=== PATIENT | female | born 1995 | race Hispanic/Latino ===

== ENCOUNTER 2019-07-02 15:23 | Outpatient (CLI) | payer OTHER ==
--- NOTE | 2019-07-02 16:12 | ULT ---
ULTRASOUND OBSTETRICAL COMPLETE: DATE: 07/02/2019 HISTORY: 23-year-old female in second trimester of . Evaluate size, anatomy, and dates. ICD-10: "O09.892, supervision of other high-risk , second trimester" FINDINGS: number: sheikh lie: Cephalic Maternal cervix: 5 cm. Closed. Placenta: Anterior. No placenta previa. Amniotic fluid volume: YELENA = 12cm heart rate: 135 bpm The following anatomy is visualized, with no evidence of anomalies: Head, cerebellum, lateral ventricles, four-chamber heart, stomach, kidneys, cord insertion, bladder, cervical spine, thoracic spine, lumbar spine, sacrum, nose and lips, upper extremities, lower extreme venous, and three-vessel cord. biometry: Biparietal diameter (BPD): 4.7 cm 20 w 2 d Head circumference (HC): 19.4 cm 21 w 5 d Abdominal circumference (AC): 15.8 cm 21 w 0 d Femur length (FL): 3.2 cm 20 w 0 d Average ultrasound age (AUA): 20 w 6 d Estimated date of delivery (NAKITA): 11/13/2019 Estimated weight (EFW): 360 g +/- 53 g IMPRESSION: 1) Live 2nd trimester intrauterine gestation. 2) Estimated gestational age of 20 weeks, 6 days 3) cephalic lie. 4) no anatomic abnormality identified.
== END 2019-07-02 15:24 | disposition home or self-care (01) ==
LOC: BICULT 15:23
PROVIDERS: ATTEND Family Medicine
DX: O09.892 Supervision of other high risk pregnancies, second trimester (principal); O32.9XX0 Maternal care for malpresentation of fetus, unspecified, not applicable or unspecified; Z3A.20 20 weeks gestation of pregnancy
CPT/HCPCS: 76805

== ENCOUNTER 2019-11-05 07:52 | Inpatient (IN) | payer OTHER, SELFPAY ==
[2019-11-05] MEDS: Lactated Ringer's 1,000 ML IV SCH ×2 (12:18→13:48)
[2019-11-05] MEDS ORDERED: hydrALAZINE 20 MG/ML VIAL SLOW IVP PRN ×2 (12:22→18:03)
[2019-11-05] MEDS ORDERED: Promethazine HCl 25 MG/ML VIAL IM PRN ×3 (12:22→18:03)
[2019-11-05] MEDS ORDERED: Ondansetron PF 4 MG/2 ML Vial IVP PRN ×3 (12:22→18:03)
[2019-11-05 12:39] LABS: Hemoglobin 12.7 g/dL (12.0-16.0); Mean Corpuscular HGB CONC 35.1 g/dL (32.0-36.0); Mean Platelet Volume 9.1 fL (7.4-10.4); Platelet Count 204 thou/uL (130-400); RBC Distribution Width 11.5 % (11.5-14.5); Red Blood Cell (RBC) Count 3.85 mill/uL (4.20-5.40); White Blood Cell (WBC) Count 5.9 thou/uL (4.8-10.8)
[2019-11-05] MEDS ORDERED: CEFAZOLIN 2 GM in Premix Bag 1 BAG IVPB SCH (12:45)
[2019-11-05] MEDS ORDERED: Bicitra 30 ML UDCUP PO SCH (12:45)
[2019-11-05 13:09] VITALS: BMI 34.5
[2019-11-05 13:20] LABS: HBSAg Index 0.23 S/CO (0-0.99); Hep B Surf Ag Non-Reactive S/CO (NonReactive); Syphilis Antibody Nonreactive (Nonreactive); Syphilis Antibody Index 0.04 S/CO (<1.00 Non-Reactive)
[2019-11-05] MEDS ORDERED: MORPHINE 5 MG/10 ML PF VIAL ONE (13:32)
[2019-11-05] MEDS ORDERED: PHENYLEPHRINE-NS 100 MCG/ML 10 ML SYRINGE ONE (13:33)
[2019-11-05] MEDS ORDERED: Oxytocin 10 UNITS/ML VIAL ONE (13:33)
[2019-11-05] MEDS ORDERED: Meperidine HCl/PF 25 MG/ML VIAL SLOW IVP PRN (15:41)
[2019-11-05] MEDS ORDERED: Ondansetron HCl/PF 4 MG/2 ML Vial IVP PRN (15:41)
[2019-11-05] MEDS ORDERED: Naloxone HCl 0.4 mg/ml Vial IVP PRN ×2 (15:41)
[2019-11-05] MEDS ORDERED: Ketorolac Tromethamine 30 MG/ML VIAL IVP PRN (15:41)
[2019-11-05] MEDS ORDERED: HYDROmorphone 2 MG/ML VIAL SLOW IVP PRN (15:41)
[2019-11-05] MEDS ORDERED: Promethazine HCl 25 MG SUPP PR PRN (15:41)
[2019-11-05] MEDS ORDERED: L&D-Morphine 4 MG/ML VIAL SLOW IVP PRN ×2 (15:41→17:14)
[2019-11-05] MEDS ORDERED: Naloxone HCl 0.4 mg/ml Vial IV PRN (15:41)
[2019-11-05] MEDS ORDERED: diphenhydrAMINE 50 MG/ML VIAL IVP PRN (15:41)
[2019-11-05] MEDS ORDERED: NS / Oxytocin 40 units/1000ml 1,000 ML ONE (15:42)
[2019-11-05] MEDS ORDERED: Communication Order-Pharmacy FS SCH (15:45)
[2019-11-05] MEDS ORDERED: Ketorolac Tromethamine 30 MG/ML VIAL IVP SCH (15:45)
[2019-11-05] MEDS ORDERED: Morphine 4 MG/ML VIAL ONE (17:10)
[2019-11-05] MEDS ORDERED: Morphine 4 MG/ML VIAL SLOW IVP SCH (17:30)
--- NOTE | 2019-11-05 17:47 | PDOC.OPDEL ---
OB Operative/Delivery Note Delivery Dr/Surgeon: Himanshu Talley Pre-Delivery Diagnosis: scheduled section Weeks gestation: 39 Anesthesia: spinal - Additional Findings/Plan Placenta delivered: spontaneous Compilations/Other Findings: Procedure Note Date of Procedure: 11/05/19 Attending Surgeon: Dr. Mayank MD Resident Surgeon: Yamilet Downs MD, PGY2 Procedure: Repeat low transverse caesarean section Preoperative Diagnosis: 1)Term intrauterine 2)Previous Postoperative Diagnosis: 1)same as above Anesthesia: spinal Indications: The patient is a 24 year old female at 39.0 weeks gestation who presents for a repeat scheduled . Procedure in Detail: After risks, benefits, and alternatives were explained to the patient, she gave informed consent. Pre-operative antibiotics included Cefazolin 2 gram IV. The patient was taken to the operating room and spinal anesthesia was initiated. She was placed in the supine position with a left tilt and prepped and draped in usual sterile fashion. A Pfannenstiel incision was made with a scalpel and carried down to the level of the fascia which was sharply knicked. The fascial cut was extended bilaterally with Golden scissors. The inferior and superior edges of the cut fascial edges were elevated with Alix clamps and the underlying rectus muscles were sharply and bluntly dissected free. The recti were divided digitally and retracted manually. The peritoneum was entered bluntly and retracted manually. Bladder blade was placed. A low transverse score was made with the scalpel and the uterus was entered in the midline with the scalpel. Clear fluid was seen. The hysterotomy was extended manually. The infant was noted to be vertex and was easily delivered by fundal pressure. Mouth and nares were bulb suctioned. Cord clamped and cut and grossly normal female was handed to waiting nurse. Cord blood was obtained. Placenta was manually extracted, found to be intact with 3 vessel cord and discarded. The uterus was externalized and the endometrium was curetted with a dry lap. The bladder blade was replaced and the uterus was closed with a running locking #1 Chromic suture followed by a running non- locking #1 Chromic imbricating suture. Following this hemostasis was noted. The abdomen was irrigated with saline and suctioned free of clots. The uterus was internalized and the hysterotomy was again noted to be hemostatic. Seprafilm was applied. The fascia was closed with a running non-locking 0-PDS suture. The subcutaneous tissue was irrigated and there were no bleeders and then approximated with chromic suture. The skin was approximated with robles and a pressure dressing was placed. All counts were correct. The patient tolerated the procedure well and was taken to the recovery room in stable condition. Estimated Blood Loss: 240cc Complications: None Findings: Grossly normal female . Grossly normal placenta with 3 vessel cord discarded. Drains: Shearer to gravity draining clear urine Post delivery plan: routine recovery
[2019-11-05] MEDS ORDERED: Meperidine HCl/PF 25 MG/ML VIAL IM PRN (18:03)
[2019-11-05] MEDS ORDERED: Bisacodyl 10 MG SUPP PR PRN (18:03)
[2019-11-05] MEDS ORDERED: NS / Oxytocin 40 units/1000ml 1,000 ML IV SCH (18:03)
[2019-11-05] MEDS ORDERED: HYDROcodone/Acetaminophen 5/325 mg Tablet PO PRN (18:03)
[2019-11-05] MEDS ORDERED: Lanolin Ointment 7 GM TUBE TOP PRN (18:03)
[2019-11-05] MEDS ORDERED: diphenhydrAMINE 25 MG CAP PO PRN (18:03)
[2019-11-05] MEDS: Docusate Calcium (SURFAK) 240 MG CAP PO SCH (22:29)
[2019-11-05] MEDS: Ferrous Sulfate 325 MG TAB PO SCH (22:29)
[2019-11-06] MEDS: Ketorolac Tromethamine 30 MG/ML VIAL IVP SCH ×3 (03:17→13:28)
[2019-11-06 07:15] LABS: Hemoglobin 10.7 g/dL (12.0-16.0); Mean Corpuscular HGB CONC 34.8 g/dL (32.0-36.0); Mean Corpuscular Hemoglobin 33.4 pg (27.0-31.0); Mean Corpuscular Volume 96.2 fL (78.0-98.0); Platelet Count 152 thou/uL (130-400); RBC Distribution Width 11.5 % (11.5-14.5); Red Blood Cell (RBC) Count 3.19 mill/uL (4.20-5.40); White Blood Cell (WBC) Count 7.5 thou/uL (4.8-10.8)
[2019-11-06] MEDS ORDERED: Adacel (T-DAP) 0.5 ML SYRINGE IM ONE (09:00)
[2019-11-06] MEDS: HYDROcodone/Acetaminophen 5/325 mg Tablet PO PRN ×3 (09:58→20:57)
[2019-11-06] MEDS: Prenatal Vitamin 1 TAB PO SCH (09:59)
[2019-11-06] MEDS: Docusate Calcium (SURFAK) 240 MG CAP PO SCH ×2 (09:59→20:59)
[2019-11-06] MEDS: Ferrous Sulfate 325 MG TAB PO SCH ×2 (10:02→21:00)
[2019-11-06] MEDS: Ibuprofen 800 MG TAB PO SCH ×2 (13:31→21:03)
[2019-11-06] MEDS: Simethicone Chewable 80 MG TAB PO PRN (20:59)
[2019-11-07] MEDS: HYDROcodone/Acetaminophen 5/325 mg Tablet PO PRN (05:45)
[2019-11-07] MEDS: Ibuprofen 800 MG TAB PO SCH ×3 (05:45→21:39)
[2019-11-07] MEDS: Simethicone Chewable 80 MG TAB PO PRN (05:45)
[2019-11-07] MEDS: Prenatal Vitamin 1 TAB PO SCH (09:44)
[2019-11-07] MEDS: Docusate Calcium (SURFAK) 240 MG CAP PO SCH ×2 (09:44→21:39)
[2019-11-07] MEDS: Ferrous Sulfate 325 MG TAB PO SCH ×2 (09:52→21:39)
[2019-11-07 20:59] VITALS: TEMP 98.5
[2019-11-08] MEDS: Simethicone Chewable 80 MG TAB PO PRN (05:43)
[2019-11-08] MEDS: Ibuprofen 800 MG TAB PO SCH (05:44)
[2019-11-08 07:38] VITALS: BP 106/68
[2019-11-08] MEDS: Ferrous Sulfate 325 MG TAB PO SCH (09:50)
[2019-11-08] MEDS: Docusate Calcium (SURFAK) 240 MG CAP PO SCH (09:58)
[2019-11-08] MEDS: Prenatal Vitamin 1 TAB PO SCH (09:58)
== END 2019-11-08 11:32 | disposition home or self-care (01) | DRG 788 ==
LOC: EDSTATUS 07:53 → L&D 11:39 → UNDOADMIN 11:39 → L&D 12:02 → 3SW 18:02
PROVIDERS: ADMIT Family Medicine; ATTEND Family Medicine
PROC: 10D00Z1 Extraction of Products of Conception, Low, Open Approach (ICD-10-PCS; principal; 2019-11-05)
DX: O34.211 Maternal care for low transverse scar from previous cesarean delivery (principal); Z3A.39 39 weeks gestation of pregnancy; Z37.0 Single live birth
CPT/HCPCS: 36415; 85027; 86780; 86850; 86900; 86901; 87340; J0690; J1885; J2270; J2274; J2405; J2590

== ENCOUNTER 2020-10-17 16:47 | Emergency (ER) | payer MEDICAID, OTHER, SELFPAY ==
[~2020-10-17 16:47] MED LIST: Iopamidol-370 76% 500 ML 1 ML ONE
[2020-10-17] MEDS ORDERED: Ketorolac Tromethamine 30 MG/ML VIAL ONE (17:15)
[2020-10-17 17:53] LABS: BHCG - Serum Negative (NEGATIVE); Pregs Control Background? CLEAR/WHITE (CLR/WHITE); Pregs Control Bar Appear? YES (CONTROL BAR)
[2020-10-17 17:57] LABS: Bilirubin Negative (Negative); Blood, Urine 1+ (Negative); Clarity Extra Turbid (Clear); Glucose, Urine (Dipstick) Normal (Negative); Ketone, Urine 40 mg/dL (Negative); Leukocyte 500 Leu/uL (Negative); Nitrite Negative (Negative); Protein, Urine (Dipstick) 70 mg/dL (Neg-Trace); Specific Gravity, Urine 1.016 (1.002-1.036); Urobilinogen 3 mg/dL (Less than 2); WBC/HPF Greater than 50 HPF (0-3); pH, Urine 6.5 (5.0-9.0)
[2020-10-17 18:03] LABS: Bacteria/HPF 3+ HPF (None Seen)
[2020-10-17 18:07] LABS: #Lymphocytes 0.5 thou/uL (1.20-3.40); #Neutrophils 3.3 thou/uL (1.40-6.50); %Basophils 0.6 % (0.0-1.0); %Lymphocytes 11.9 % (21.0-51.0); %Monocytes 0.3 % (0.0-10.0); %Neutrophils 87.1 % (42.0-75.0); Hemoglobin 10.5 g/dL (12.0-16.0); Mean Corpuscular HGB CONC 32.4 g/dL (32.0-36.0); Mean Corpuscular Hemoglobin 29.8 pg (27.0-31.0); Mean Corpuscular Volume 91.8 fL (78.0-98.0); Mean Platelet Volume 8.4 fL (7.4-10.4); Platelet Count 186 thou/uL (130-400); RBC Distribution Width 12.2 % (11.5-14.5); Red Blood Cell (RBC) Count 3.54 mill/uL (4.20-5.40); White Blood Cell (WBC) Count 3.7 thou/uL (4.8-10.8)
[2020-10-17 18:11] LABS: ALT (SGPT) 12 U/L (8-55); AST (SGOT) 16 U/L (5-34); Albumin 4.1 g/dL (3.5-5.0); Alkaline Phosphatase 73 U/L (40-110); Anion Gap 18 mmol/L (10-20); BUN (Urea Nitrogen) 7 mg/dL (7.0-18.7); Bilirubin, Total 0.7 mg/dL (0.2-1.2); Calc. Creatinine Clearance 0 mL/min (70-130); Carbon Dioxide 18 mmol/L (22-29); Chloride 108 mmol/L (98-107); Globulin 3.2 g/dL (2.4-3.5); Glucose 95 mg/dL (70-105); Lipase 12 U/L (8-78); Potassium 4.1 mmol/L (3.5-5.1); Protein, Total 7.3 g/dL (6.0-8.3); Sodium 140 mmol/L (136-145)
--- NOTE | 2020-10-17 19:09 | CT ---
CT ABDOMEN AND PELVIS PERFORMED WITH CONTRAST ENHANCEMENT: 10/17/20 HISTORY: Right lower quadrant pain and back pain since Friday. Burning on urination. The lung bases are clear. The liver, spleen, pancreas and gallbladder regions appear unremarkable. There is a gastric band in place. The band is low in position, more in the body region of the stomach isolating a dilated fluid segment of the fundus and there is marked dilatation and fluid filled dist ention of the visualized esophagus. Right and left adrenal glands and right and left kidneys are normal in size. No obstruction. No renal calculi. No significant periaortic or mesenteric adenopathy. No ureteral calculi are identified. CT OF PELVIS PERFORMED WITH CONTRAST ENHANCEMENT: There is trace free fluid present. It is difficult to definitely identify an appendix given some nono pacified small bowel loops which are in that area but I see no evidence for appendicitis. I see no in flammatory change in this region. IMPRESSION: 1. There is a gastric band in place. The gastric band has no connecting tubing and is low in pos ition and it is more at the junction of the body and fundus region of the stomach. This is associated with a fluid filled distended fundus region and marked dilatation and fluid distention of the distal esophagus. 2. Appendix is not definitely identified but I do not see any signs of any periappendiceal infla mmatory process. POS: [facility] [place]
[2020-10-17] MEDS ORDERED: Acetaminophen 500 MG TAB ONE (20:12)
== END 2020-10-17 20:15 | disposition home or self-care (01) ==
LOC: ERS 16:47
DX: N39.0 Urinary tract infection, site not specified (principal)
CPT/HCPCS: 74177; 80053; 81003; 81015; 83690; 84703; 85025; 96374; J1885; Q9967

== ENCOUNTER 2022-02-24 21:11 | Emergency (ER) | payer OTHER ==
[2022-02-24] MEDS ORDERED: Ketorolac Tromethamine 30 MG/ML VIAL ONE (21:44)
== END 2022-02-24 23:41 | disposition home or self-care (01) ==
LOC: ERS 21:11
DX: S29.011A Strain of muscle and tendon of front wall of thorax, initial encounter (principal)
CPT/HCPCS: 71045; 96372; J1885

== ENCOUNTER 2022-03-01 11:25 | Emergency (ER) | payer OTHER ==
[2022-03-01] MEDS ORDERED: Ibuprofen 200 MG TAB ONE (12:13)
[2022-03-01] MEDS ORDERED: Acetaminophen 500 MG TAB ONE (12:13)
== END 2022-03-01 12:24 | disposition home or self-care (01) ==
LOC: ERS 11:25
DX: R07.89 Other chest pain (principal)

== ENCOUNTER 2024-02-04 12:21 | Emergency (ER) | payer OTHER ==
[2024-02-04] MEDS ORDERED: Meclizine HCl 25 MG TAB ONE (14:25)
[2024-02-04] MEDS ORDERED: Ondansetron PF 4 MG/2 ML Vial ONE (14:25)
[2024-02-04 15:00] LABS: #Basophils Less than 0.03 10x3/uL (0.0-0.2); #Eosinphils Less than 0.03 10x3/uL (0.0-0.7); %Basophils 0.3 % (0.0-1.0); %Eosinophils 0.6 % (0.0-10.0); %Lymphocytes 37.8 % (21.0-51.0); %Monocytes 11.1 % (0.0-10.0); %Neutrophils 49.9 % (42.0-75.0); Hematocrit 28.1 % (36.0-47.0); Hemoglobin 8.9 g/dL (12.0-16.0); Mean Corpuscular HGB CONC 31.7 g/dL (32.0-36.0); Mean Corpuscular Hemoglobin 26.2 pg (27.0-31.0); Mean Corpuscular Volume 82.6 fL (78.0-98.0); Mean Platelet Volume 10.7 fL (7.4-10.4); Platelet Count 219 10x3/uL (130-400)
[2024-02-04 15:11] LABS: BHCG - Serum Negative (NEGATIVE); Pregs Control Background? CLEAR/WHITE (CLR/WHITE); Pregs Control Bar Appear? YES (CONTROL BAR)
[2024-02-04 15:18] LABS: ALT (SGPT) 12 U/L (8-55); AST (SGOT) 12 U/L (5-34); Albumin 3.8 g/dL (3.5-5.0); Alkaline Phosphatase 53 U/L (40-110); Anion Gap 15 mmol/L (10-20); BUN (Urea Nitrogen) 10 mg/dL (7.0-18.7); Bilirubin, Total 0.5 mg/dL (0.2-1.2); Calc. Creatinine Clearance 0 mL/min (70-130); Carbon Dioxide 23 mmol/L (22-29); Chloride 111 mmol/L (98-107); Estimated GFR 122; Globulin 3.1 g/dL (2.4-3.5); Glucose 90 mg/dL (70-105); Lipase 17 U/L (8-78); Potassium 3.2 mmol/L (3.5-5.1); Protein, Total 6.9 g/dL (6.0-8.3); Sodium 146 mmol/L (136-145)
[2024-02-04] MEDS ORDERED: Potassium Chloride 20 MEQ TAB ONE (15:42)
[2024-02-04] MEDS ORDERED: Potassium Bicarbonate/Cit Ac 20 MEQ TAB ONE (15:46)
[2024-02-04 16:38] LABS: Bilirubin Negative (Negative); Blood, Urine Negative (Negative); CAUTI Indications for Culture Pelvic or flank pain; Clarity Clear (Clear); Glucose, Urine (Dipstick) Normal (Negative); Ketone, Urine Trace mg/dL (Negative); Leukocyte Negative Leu/uL (Negative); Nitrite Negative (Negative); Protein, Urine (Dipstick) Negative (Neg-Trace); RBC/HPF 0-3 HPF (0-3); Specific Gravity, Urine 1.007 (1.002-1.036); Squamous Epithelial 0-3 HPF (0-3); Urobilinogen Normal mg/dL (Less than 2); WBC/HPF 0-3 HPF (0-3); pH, Urine 6.5 (5.0-9.0)
[2024-02-04 17:02] LABS: Bacteria/HPF 1+ HPF (None Seen)
[2024-02-04 17:03] LABS: Urine Culture Reflex No No
[2024-02-04] MEDS ORDERED: Sodium Ferric Gluconate 250 MG in Sodium Chloride 0.9% 250 ML 250 ML IVPB SCH (17:15)
== END 2024-02-04 22:51 | disposition home or self-care (01) ==
LOC: ERS 12:21
DX: D64.9 Anemia, unspecified (principal); Z55.6 Problems related to health literacy
CPT/HCPCS: 80053; 81001; 83690; 84703; 85025; 93005; 96374; J2405; J2916; J7050